=== PATIENT | male | born 1980 | race Caucasian/White ===

== ENCOUNTER 2023-07-21 04:24 | Day surgery (SDC) | payer OTHER ==
[2023-07-18 13:35] VITALS: BMI 47.9
[2023-07-21 09:50] VITALS: RESP 18
[2023-07-21] MEDS ORDERED: MIDAZOLAM HCL 2 MG/2 ML SINGLE DOSE VIAL ONE (10:44)
[2023-07-21] MEDS ORDERED: KETAMINE HCL 200 MG/20 ML VIAL ONE (10:44)
[2023-07-21] MEDS ORDERED: TETRACAINE/BENZOCAINE/BUTAMBEN 20 GM SPR TP ONE (10:44)
[2023-07-21 11:16] VITALS: TEMP 97.7
[2023-07-21 12:13] VITALS: BP 130/87; PULSE 81
== END 2023-07-21 12:12 | disposition home or self-care (01) ==
LOC: JASU-ENDO 04:24
PROVIDERS: ATTEND Internal Medicine Gastroenterology
PROC: 0DB68ZX Excision of Stomach, Via Natural or Artificial Opening Endoscopic, Diagnostic (ICD-10-PCS; principal; 2023-07-21 11:00)
DX: K29.50 Unspecified chronic gastritis without bleeding (principal)
CPT/HCPCS: 88305-TC; 88342-TC